=== PATIENT | male | born 1975 | race Caucasian/White ===

== ENCOUNTER 2016-04-02 18:08 | Observation (INO) | payer BC ==
[~2016-04-02] VITALS: Ht 188 cm; Wt 82.9 kg
[2016-04-02 19:22] LABS: BASOPHIL COUNT 0.1 K/uL (0-0.1); EOSINOPHIL (%) 0.5 % (0-5); HEMATOCRIT 42.2 % (38.0-50.0); LYMPHOCYTE COUNT 1.3 K/uL (1.0-2.8); MCH 29.7 PG (29.0-34.0); MCHC 35.1 G/DL (30.0-36.0); MCV 84.6 FL (86-99); MEAN PLAT.VOLUME 9.5 uM^3 (9.0-12.4); MONOCYTE (%) 5.4 % (3-12); MONOCYTE COUNT 0.4 K/uL (0-0.8); NEUTROPHIL (%) 76.8 % (45-76); NEUTROPHIL COUNT 6.1 K/uL (1.8-6.4); PLATELET COUNT 299 K/uL (156-360); RBC DIS.WIDTH-CV 12.3 % (11.8-14.6); RBC DIS.WIDTH-SD 36.8 % (39-53); RED BLOOD COUNT 4.99 M/uL (4.00-5.50)
[2016-04-02 19:29] LABS: CREATININE 0.9 mg/dL (0.6-1.3)
[2016-04-02 19:33] LABS: CHLORIDE 106 mEq/L (99-109); POTASSIUM 4.1 mEq/L (3.7-5.4); SODIUM 141 mEq/L (136-147)
[2016-04-02 19:34] LABS: GLUCOSE 108 mg/dL (70-99)
[2016-04-02 19:36] LABS: ANION GAP 10 MEQ/L (2-14)
[2016-04-02 19:39] LABS: UREA NITROGEN (BUN) 17 mg/dL (9-23)
[2016-04-02 19:41] LABS: CREATINE KINASE 328 IU/L (1-294)
[2016-04-02 19:44] LABS: TROP-I INTERPRETATION NEGATIVE; TROPONIN-I < 0.01 ng/mL (0.0-0.30)
[2016-04-02 19:46] LABS: GFR ESTIMATE (CALCULATED) > 59 mL/min/
[2016-04-02] MEDS ORDERED: PROBIOTIC1 EAC1 PO (22:26)
[2016-04-03 00:20] LABS: D-DIMER ELISA < 0.15 mg/L FEU (< 0.57)
[2016-04-03 01:08] LABS: CHLORIDE 105 mEq/L (99-109); POTASSIUM 3.6 mEq/L (3.7-5.4); SODIUM 140 mEq/L (136-147)
[2016-04-03 01:10] LABS: GLUCOSE 113 mg/dL (70-99)
[2016-04-03 01:11] LABS: ANION GAP 7 MEQ/L (2-14)
[2016-04-03 01:12] LABS: TOTAL BILIRUBIN 0.9 mg/dL (0.0-1.0)
[2016-04-03 01:14] LABS: ALKALINE PHOSPHATASE 45 IU/L (3-129); GFR ESTIMATE (CALCULATED) > 59 mL/min/
[2016-04-03 01:15] LABS: UREA NITROGEN (BUN) 15 mg/dL (9-23)
[2016-04-03 01:25] VITALS: BP 122/59
[2016-04-03 02:40] LABS: TROP-I INTERPRETATION NEGATIVE; TROPONIN-I < 0.01 ng/mL (0.0-0.30)
[2016-04-03 03:01] LABS: HDL CHOLESTEROL 62 MG/DL (Desirable>=40); LDL CHOLESTEROL 119 mg/dL (Desirable<100); NON-HDL CHOLESTEROL 139 mg/dL (Desirable<160); TOTAL CHOLESTEROL 201 mg/dL (Desirable<200); TRIGLYCERIDES 98 MG/DL (Normal: <150)
[2016-04-03 05:02] VITALS: BP 97/57
[2016-04-03 07:46] LABS: INTACT PARATHYROID HORMONE 28 pg/mL (10-69)
[2016-04-03 07:53] VITALS: BP 110/70
[2016-04-03 09:39] LABS: ALKALINE PHOSPHATASE 36 IU/L (3-129); ANION GAP 6 MEQ/L (2-14); CHLORIDE 104 MEQ/L (99-109); GFR ESTIMATE (CALCULATED) > 59 mL/min/; POTASSIUM 3.8 MEQ/L (3.7-5.4); SAMPLE HEMOLYSIS CHECK 0; SAMPLE ICTERIC CHECK 0; SAMPLE LIPEMIA CHECK 0; SODIUM 140 MEQ/L (136-147); UREA NITROGEN (BUN) 13 mg/dL (9-23)
[2016-04-03 09:43] LABS: GLUCOSE 77 mg/dL (70-99)
[2016-04-03 09:46] LABS: HEMATOCRIT 40.7 % (38.0-50.0); MCH 29.3 PG (29.0-34.0); MCHC 33.7 G/DL (30.0-36.0); MCV 87.2 FL (86-99); MEAN PLAT.VOLUME 10.2 uM^3 (9.0-12.4); PLATELET COUNT 259 K/uL (156-360); RBC DIS.WIDTH-CV 12.6 % (11.8-14.6); RBC DIS.WIDTH-SD 40.4 % (39-53); RED BLOOD COUNT 4.67 M/uL (4.00-5.50)
[2016-04-03 09:47] LABS: WHITE BLOOD COUNT 3.8 K/uL (4.1-10.2)
[2016-04-03 09:51] LABS: TROP-I INTERPRETATION NEGATIVE; TROPONIN-I < 0.01 ng/mL (0.0-0.30)
[2016-04-03 11:45] VITALS: BP 122/64
[2016-04-03] MEDS ORDERED: PRAVASTATIN SOD40 MG PO (12:28)
[2016-04-03] MEDS ORDERED: ASPIR-LOW81 MG PO (12:28)
[2016-04-04 07:51] LABS: Estimated Average Glucose 105 mg/dL (70-123); HEMOGLOBIN A1c (GLYCOHEMOGLOB) 5.3 % HGB (Below 5.7)
== END 2016-04-03 13:04 | disposition home or self-care (01) ==
LOC: EME 18:08 → EDOF 22:47 → 5WEST 04-03 00:58
PROVIDERS: Emergency Medicine; Internal Medicine
DX: G45.9 Transient cerebral ischemic attack, unspecified (principal); R55 Syncope and collapse; E83.52 Hypercalcemia; M62.82 Rhabdomyolysis; R73.9 Hyperglycemia, unspecified; Z82.0 Family history of epilepsy and other diseases of the nervous system; Z82.3 Family history of stroke
CPT/HCPCS: 70496; 70498; 70551; 80047; 80048; 80053; 80061; 82550; 83036; 83970; 84484; 85025; 85027; 85379; 86850; 86900; 86901; 93005; 93880; 99281; 99285; G0378; J1644; J7030